=== PATIENT | female | born 1970 | race African-American/Black ===

== ENCOUNTER 2016-09-01 19:46 | Emergency (ER) | payer OTHER ==
[~2016-09-01] VITALS: Ht 160 cm; Wt 59.0 kg
--- NOTE | ~2016-09-01 | EKG ---
[place] [address] [email or web address] [place] [address] ELECTROCARDIOGRAM REPORT Name: CATHIE JUNG [id number] Admission: 09/01/16 Attend Phys: Discharge: 09/01/16 Date of : 74 Report #: [id number] THIS REPORT FOR: //name// [facility] ED Test Date: 2016-09-01 Test Time: 19:54:03 Pat Name: CATHIE JUNG Department: Room: Gender: F [employer]: MZOOK : 1970 Requested By: Deb Sarmiento Order Number: [id number] MD: Michael Lomax Measurements Intervals [place] Rate: 86 P: 75 [place]: 137 QRS: 32 QRSD: 92 T: 48 QT: 366 QTc: 438 Interpretive Statements Sinus rhythm Probable left atrial enlargement Baseline wander in lead(s) I,III,aVR,aVL No previous ECG available for comparison Electronically Signed On 09-03-2016 13:22:45 CDT by Michael Lomax [email or web address] <ELECTRONICALLY SIGNED> By: Michael Lomax MD 09/03/16 1322 53 53 Michael Lomax MD /GUME
[2016-09-01 20:34] LABS: ABSOLUTE NEUTROPHILS 4.9 thou/uL (1.4-8.2); BASOPHILS 0.7 % (0.0-2.0); EOSINOPHILS 0.1 % (0.0-3.0); HEMATOCRIT 37.1 % (37.0-47.0); HEMOGLOBIN 12.3 gm/dL (12.0-15.0); LYMPHOCYTES 18.4 % (24.0-44.0); MCH 31.3 pg (26.0-34.0); MCHC 33.2 g/dL (28.0-37.0); MCV 94.2 fL (80.0-100.0); MONOCYTES 8.2 % (1.0-8.0); PLATELET COUNT 173 thou/uL (150-400); POLYS 72.6 % (36.0-66.0); RBC 3.94 mil/uL (4.20-5.00); RDW 12.8 % (10.5-14.5); WBC 6.8 thou/uL (4.0-11.0)
[2016-09-01 20:36] LABS: MANUAL DIFF NO
[2016-09-01 20:43] LABS: CALCIUM 9.3 mg/dL (8.5-10.1); CREATININE 0.8 mg/dL (0.6-1.3); POTASSIUM 3.6 mmol/L (3.5-5.1)
[2016-09-01 21:39] LABS: URINE BILIRUBIN 1+ (Negative); URINE BLOOD 3+ (Negative); URINE COLOR RED; URINE GLUCOSE-RANDOM* NEGATIVE (Negative); URINE KETONES 2+ (Negative); URINE LEUKOCYTES-REFLEX TRACE (Negative); URINE PROTEIN (DIPSTICK) 3+ (Negative)
[2016-09-01 21:45] LABS: ICTOTEST (BILI CONFIRMATORY) Negative (Negative)
[2016-09-01 21:47] LABS: CASTS None Seen /LPF (None Seen); CRYSTALS None Seen /LPF (None Seen); SQUAMOUS 0-3 Few /LPF (0-3); URINE RBC >20 Many /HPF (0-2); URINE WBC-REFLEX 0-5 Rare /HPF (0-5)
[2016-09-01] MEDS ORDERED: KEFLEX500 MG PO (22:14)
[2016-09-01 22:34] VITALS: BP 108/76
== END 2016-09-01 22:34 | disposition home or self-care (01) ==
LOC: ER 19:46
PROVIDERS: Emergency Medicine
DX: N39.0 Urinary tract infection, site not specified (principal); E03.9 Hypothyroidism, unspecified